=== PATIENT | female | born 1965 | race American Indian/Alaskan Native ===

== ENCOUNTER 2017-03-21 22:16 | Inpatient (IN) | payer OTHER ==
[2017-03-21 23:50] LABS: Basophils % (Auto) 0.6 % (0.0-1.8); Eosinophils % (Auto) 0.4 % (0.0-4.3); Hematocrit 42.6 % (30.3-42.9); Hemoglobin 13.8 gm/dl (10.1-14.3); Mean Corpuscular HGB Conc 32 % (30-34); Mean Corpuscular Hemoglobin 27 pg (28-32); Mean Corpuscular Volume 82 fl (79-97); Platelet Count 306 K/mm3 (140-440); Red Cell Distribution Width 15.1 % (13.2-15.2); White Blood Count 8.9 K/mm3 (4.5-11.0)
[2017-03-22 01:06] LABS: Anion Gap 19 mmol/L; BUN/Creatinine Ratio 18; Blood Urea Nitrogen 11 mg/dL (7-17); Calcium 10.4 mg/dL (8.4-10.2); Carbon Dioxide 27 mmol/L (22-30); Chloride 98.5 mmol/L (98-107); Glucose 100 mg/dL (65-100); Potassium 4.1 mmol/L (3.6-5.0); Sodium 140 mmol/L (137-145)
[2017-03-22] MEDS ORDERED: SUBLIMAZE IV ONE (07:30)
[2017-03-22] MEDS ORDERED: ZOFRAN IV ONE (07:30)
[2017-03-22] MEDS ORDERED: NITRO-BID 2% TP ONE ×2 (07:30→09:16)
--- NOTE | 2017-03-22 07:35 | Emergency Department Report ---
HPI - General Chief Complaint: Chest Pain Time Seen by Provider: 03/22/17 07:22 - HPI HPI: Room 3 The patient is a 51-year-old female presenting with a chief complaint of chest pain and headache. Patient states 2 days ago she developed an intermittent occipital headache described as sharp piercing pain. The patient states yesterday afternoon at approximately 17:00 she developed substernal chest pain described as tightness radiating to the left chest. The patient states she developed left upper extremity numbness in addition to shortness of breath, diaphoresis and nausea without vomiting associated with the chest pain. The patient currently gives her pain a score of 10/10. Patient states she's never had a stress test or cardiac catheterization Location: Chest, head Duration: [See above] Quality: [See above] Severity:02/10 Modifying factors: [see above] Context: [see above] Mode of transportation: [not driving] ED Past Medical Hx - Past Medical History Previous Medical History?: Yes Hx Hypertension: Yes Hx Arthritis: Yes - Surgical History Hx Cholecystectomy: Yes Additional Surgical History: Fibriods removed, cysts removed - Family History Family history: no significant - Social History Smoking Status: Never Smoker Substance Use Type: None - Medications Home Medications: Home Medications Medication Instructions Recorded Confirmed Last Taken Type Prednisone 20 mg PO TID #9 tablet 03/18/13 08/10/13 Unknown Rx Triamter/Hctz 75-50 mg [Maxzide 1 tab PO QDAY #30 tablet 03/18/13 08/10/13 Unknown Rx 75-50 mg] amLODIPine [Norvasc] 5 mg PO DAILY #30 tablet 03/18/13 08/10/13 Unknown Rx Cyclobenzaprine HCl [FLEXERIL] 10 mg PO TID PRN #15 tablet 04/07/13 08/10/13 Unknown Rx Ibuprofen [Motrin 800 MG tab] 800 mg PO TID #30 tablet 04/07/13 08/10/13 Unknown Rx Ondansetron [Zofran] 4 mg PO Q6HR PRN #10 tablet 04/07/13 08/10/13 Unknown Rx HYDROcodone/APAP 10-325 [[place] 1 each PO Q6HR PRN #15 tablet 08/10/13 Unknown Rx 10-325 mg TAB] Acetaminophen/Codeine 1 tab PO Q6H PRN #15 tab 06/21/14 Unknown Rx [Acetaminophen-Codeine #3 TAB] Ibuprofen [Motrin] 800 mg PO Q8H #30 tablet 06/21/14 Unknown Rx methOCARBAMOL [Robaxin] 500 mg PO BID #30 tab 06/21/14 Unknown Rx methylPREDNISolone [Medrol Dose 4 mg PO DAILY 6 Days tab 06/21/14 Unknown Rx [place]] ED Review of Systems ROS: Stated complaint: CHEST PAIN Other details as noted in HPI Comment: All other systems reviewed and negative Constitutional: diaphoresis. denies: chills, fever Eyes: denies: eye pain, eye discharge, vision change ENT: denies: ear pain, throat pain Respiratory: shortness of breath Cardiovascular: chest pain Endocrine: no symptoms reported Gastrointestinal: nausea. denies: vomiting Genitourinary: denies: urgency, dysuria, discharge Musculoskeletal: denies: back pain, joint swelling, arthralgia Skin: denies: rash, lesions Neurological: headache. denies: weakness, paresthesias Psychiatric: denies: anxiety, depression Hematological/Lymphatic: denies: easy bleeding, easy bruising Physical Exam - Physical Exam Vital Signs: Vital Signs 03/21/17 03/22/17 03/22/17 22:47 03:03 05:25 Temperature 98.5 F 98.1 F 98 F Pulse Rate 87 87 95 H Respiratory 18 18 24 Rate Blood Pressure 188/90 176/87 Blood Pressure 151/104 [Left] O2 Sat by Pulse 97 99 97 Oximetry 03/22/17 06:01 Temperature Pulse Rate 92 H Respiratory 23 Rate Blood Pressure 137/78 Blood Pressure [Left] O2 Sat by Pulse 98 Oximetry Physical Exam: GENERAL: The patient is well-developed well-nourished female lying on stretcher not appearing to be in acute distress. [] HEENT: Normocephalic. Atraumatic. Extraocular motions are intact. Patient has moist mucous membranes. NECK: Supple. Trachea midline CHEST/LUNGS: Clear to auscultation. There is no respiratory distress noted. HEART/CARDIOVASCULAR: Regular. There is no tachycardia. There is no gallop rub or murmur. ABDOMEN: Abdomen is soft, nontender. Patient has normal bowel sounds. There is no abdominal distention. SKIN: There is no rash. There is no edema. There is no diaphoresis. NEURO: The patient is awake, alert, and oriented. The patient is cooperative. The patient has no focal neurologic deficits. The patient has normal speech. Cranial nerves II through XII grossly intact, no drift MUSCULOSKELETAL: There is no evidence of acute injury. ED Course Vital Signs 03/21/17 03/22/17 03/22/17 22:47 03:03 05:25 Temperature 98.5 F 98.1 F 98 F Pulse Rate 87 87 95 H Respiratory 18 18 24 Rate Blood Pressure 188/90 176/87 Blood Pressure 151/104 [Left] O2 Sat by Pulse 97 99 97 Oximetry 03/22/17 06:01 Temperature Pulse Rate 92 H Respiratory 23 Rate Blood Pressure 137/78 Blood Pressure [Left] O2 Sat by Pulse 98 Oximetry ED Medical Decision Making - Lab Data Result diagrams: 03/21/17 23:29 03/21/17 23:29 Laboratory Tests 03/21/17 03/21/17 03/22/17 23:29 23:29 02:37 WBC 8.9 RBC 5.20 H Hgb 13.8 Hct 42.6 MCV 82 MCH 27 L MCHC 32 RDW 15.1 Plt Count 306 Lymph % (Auto) 37.4 H Sargent % (Auto) 6.5 Eos % (Auto) 0.4 Baso % (Auto) 0.6 Lymph # 3.3 Sargent # 0.6 Eos # 0.0 Baso # 0.1 Seg Neutrophils % 55.1 Seg Neutrophils # 4.9 Sodium 140 Potassium 4.1 Chloride 98.5 Carbon Dioxide 27 Anion Gap 19 BUN 11 Creatinine 0.6 L Estimated GFR > 60 BUN/Creatinine Ratio 18 Glucose 100 Calcium 10.4 H Troponin T < 0.010 < 0.010 03/22/17 05:25 WBC RBC Hgb Hct MCV MCH MCHC RDW Plt Count Lymph % (Auto) Sargent % (Auto) Eos % (Auto) Baso % (Auto) Lymph # Sargent # Eos # Baso # Seg Neutrophils % Seg Neutrophils # Sodium Potassium Chloride Carbon Dioxide Anion Gap BUN Creatinine Estimated GFR BUN/Creatinine Ratio Glucose Calcium Troponin T < 0.010 - EKG Data -: EKG Interpreted by Me EKG shows normal: sinus rhythm Rate: normal - EKG Data When compared to previous EKG there are: previous EKG unavailable Interpretation: other (no ischemic changes seen) - Radiology Data Radiology results: report reviewed (CT head), image reviewed (CT head, chest x- ray) interpreted by me: Chest x-ray-no focal infiltrates, no pneumothorax FINAL REPORT EXAM: CT HEAD/BRAIN WO CON HISTORY: headache TECHNIQUE: CT imaging acquired through the head without intravenous contrast. Transaxial reformations are provided. PRIORS: None. FINDINGS: The ventricles, cisterns and sulci are within normal limits. No intraparenchymal or extra-axial mass, hemorrhage, or mass effect. Hsu and white-matter differentiation is within normal limits. Normal spherical shape of the globes. No significant abnormality involving the imaged portions of the paranasal sinuses and mastoid air cells. No skull or facial fracture visualized. IMPRESSION: No acute intracranial abnormality. Transcribed By: MB Dictated By: COMPA DICKERSON MD Electronically Authenticated By: COMPA DICKERSON MD Signed Date/Time: 03/22/17423 DD/ 3 TD/TT: 03/22/17423 - Differential Diagnosis ACS, ICH, GERD, pericarditis, hypertensive urgency Critical care attestation.: If time is entered above; I have spent that time in minutes in the direct care of this critically ill patient, excluding procedure time. ED Disposition Clinical Impression: Chest pain, Headache Disposition: OP ADMIT IP TO THIS HOSP Is pt being admited?: Yes Does the pt Need Aspirin: Yes Condition: Fair Instructions: Chest Pain (ED) Referrals: PRIMARY CAREMD [Primary Care Provider] - 3-5 Days Time of Disposition: 08:37 (hospitalist paged)
--- NOTE | 2017-03-22 08:27 | Cat Scan Report ---
FINAL REPORT EXAM: CT HEAD/BRAIN WO CON HISTORY: headache TECHNIQUE: CT imaging acquired through the head without intravenous contrast. Transaxial reformations are provided. PRIORS: None. FINDINGS: The ventricles, cisterns and sulci are within normal limits. No intraparenchymal or extra-axial mass, hemorrhage, or mass effect. Hsu and white-matter differentiation is within normal limits. Normal spherical shape of the globes. No significant abnormality involving the imaged portions of the paranasal sinuses and mastoid air cells. No skull or facial fracture visualized. IMPRESSION: No acute intracranial abnormality.
[2017-03-22] MEDS ORDERED: ASPIRIN PO ONE (08:37)
--- NOTE | 2017-03-22 08:50 | XRay Report ---
FINAL REPORT EXAM: XR CHEST 1V AP HISTORY: chest pain TECHNIQUE: AP portable view(s) of the chest obtained. PRIORS: None. FINDINGS: No mediastinal shift. Cardiac silhouette is not enlarged. No pneumothorax, effusion, or focal pulmonary opacity identified. No acute skeletal findings. IMPRESSION: No acute pulmonary finding identified.
[2017-03-22] MEDS ORDERED: ZOFRAN ONE (09:16)
[2017-03-22] MEDS ORDERED: ASPIRIN ONE (09:17)
[2017-03-22] MEDS ORDERED: SUBLIMAZE ONE (09:19)
--- NOTE | 2017-03-22 09:46 | History and Physical Report ---
History of Present Illness Date of examination: 03/22/17 Date of admission: 03/22/17 08:41 Chief complaint: Left-sided chest pain pressure for the last 2 days History of present illness: Morbidly obese 51-year-old -[place] female patient with significant history of hypertension presented to the emergency room with left-sided chest pain and headache Patient has intermittent chest pain retrosternal radiating to left-sided , pain squeezing to pressure type as well as left upper extremity numbness Patient reports mild shortness of breath diaphoresis and nausea without vomiting , grades his pain 10 over 10 at peak, the time of my evaluation she reports 4-6/ 10 No orthopnea paroxysmal nocturnal dyspnea First set of cardiac enzymes negative, no acute EKG changes Past History Past Medical History: arthritis, hypertension Past Surgical History: Other (removal of fibroid/cyst removal) Social history: lives with family, full code. denies: smoking, alcohol abuse, prescription drug abuse Family history: hypertension Medications and Allergies Allergies Allergy/AdvReac Type Severity Reaction Status Date / Time iodine Allergy Swelling Verified 06/21/14 11:32 Home Medications Medication Instructions Recorded Confirmed Last Taken Type Triamterene/Hydrochlorothiazid 1 tab PO DAILY 03/22/17 03/22/17 03/21/17 10:00 History [Triamterene-Hctz 75-50 mg Tab] amLODIPine [Norvasc] 10 mg PO DAILY 03/22/17 03/22/17 03/21/17 10:00 History Review of Systems Constitutional: no weight loss, no weight gain, no fever Ears, nose, mouth and throat: no nasal congestion, no nasal discharge Cardiovascular: chest pain, shortness of breath, no orthopnea, no palpitations, no paroxysmal nocturnal dyspnea Respiratory: shortness of breath, no cough, no hemoptysis Gastrointestinal: nausea, no abdominal pain, no vomiting Genitourinary Female: no pelvic pain, no dysuria Musculoskeletal: arthritis, no myalgias Integumentary: no rash, no lesions Neurological: numbness, no weakness, no seizures Psychiatric: no anxiety, no depression Endocrine: no cold intolerance, no heat intolerance, no polydipsia, no polyuria Hematologic/Lymphatic: no easy bruising, no easy bleeding Allergic/Immunologic: no urticaria, no allergic rhinitis Exam - Constitutional Vitals: Temp Pulse Resp BP Pulse Ox 97.9 F 99 H 18 145/82 100 03/22/17 07:00 03/22/17 09:30 03/22/17 09:30 03/22/17 09:30 03/22/17 07:27 General appearance: Present: no acute distress, well-nourished, obese (morbidly obese) - EENT Eyes: Present: PERRL, EOM intact - Neck Neck: Present: supple, normal ROM - Respiratory Respiratory effort: normal Respiratory: bilateral: diminished, negative: rales, rhonchi, wheezing - Cardiovascular Rhythm: regular Heart Sounds: Present: S1 & S2 - Extremities Extremities: no ischemia, No edema - Abdominal General gastrointestinal: Present: soft, non-tender, non-distended, normal bowel sounds - Integumentary Integumentary: Present: clear, warm - Musculoskeletal Musculoskeletal: strength equal bilaterally, generalized weakness - Psychiatric Psychiatric: appropriate mood/affect, cooperative - Neurologic Neurologic: CNII-XII intact, moves all extremities Results - Labs CBC & Chem 7: 03/21/17 23:29 03/21/17 23:29 Labs: Abnormal lab results 03/21/17 03/21/17 Range/Units 23:29 23:29 RBC 5.20 H (3.65-5.03) M/mm3 MCH 27 L (28-32) pg Lymph % (Auto) 37.4 H (13.4-35.0) % Creatinine 0.6 L (0.7-1.2) mg/dL Calcium 10.4 H (8.4-10.2) mg/dL Assessment and Plan --Angina; serial cardiac enzymes, EKG Management with aspirin, beta blockers, nitrates, statins, and Lovenox Patient has risk factors, stress test to rule out reversible ischemia and LV function Cardiology evaluation if no improvement or if stress test is abnormal --Hypertension; moderate control, resume home antihypertensives and when necessary medications --Morbid obesity; BMI 52.5 Counseling done, advised dietary modification, exercise as tolerated and weight reduction May benefit by bariatric surgical evaluation as outpatient for weight reduction program --Headache; CT scan negative, supportive care and pain medications --DVT prophylaxis with Lovenox Closely monitor the patient and just the management as needed Possible discharge in 1-2 days if stable Plan of care discussed with the patient and her nurse
[2017-03-22] MEDS ORDERED: NITROSTAT SL PRN (09:52)
[2017-03-22] MEDS ORDERED: HCTZ PO SCH (10:00)
[2017-03-22] MEDS ORDERED: TRIAMTER PO SCH (10:00)
[2017-03-22] MEDS: ASPIRIN PO SCH (10:41)
[2017-03-22] MEDS: COREG PO SCH ×2 (11:34→21:06)
[2017-03-22] MEDS: NORVASC PO SCH (11:34)
[2017-03-22] MEDS: PEPCID PO SCH ×2 (11:35→21:06)
[2017-03-22] MEDS: MAXZIDE-25 PO SCH (12:30)
[2017-03-22 13:10] LABS: Creatine Kinase 80 units/L (30-135)
[2017-03-22 14:06] LABS: Creatine Kinase MB < 1.0 ng/mL (0.0-4.0)
[2017-03-22 17:07] LABS: Creatine Kinase 76 units/L (30-135)
[2017-03-22] MEDS: TYLENOL PO PRN ×2 (17:19→23:35)
[2017-03-22 17:20] LABS: Creatine Kinase MB < 1.0 ng/mL (0.0-4.0)
[2017-03-23] MEDS ORDERED: FLEXERIL PO PRN (02:48)
[2017-03-23] MEDS: TYLENOL PO PRN (03:08)
--- NOTE | 2017-03-23 09:55 | Discharge Summary ---
Providers - Providers Date of Admission: 03/22/17 08:41 Date of discharge: 03/23/17 Attending physician: CHEL OSBORN Primary care physician: PAVING SUPERVISOR Hospitalization Condition: Fair Disposition: DC-01 TO HOME OR SELFCARE Time spent for discharge: 32 min Core Measure Documentation - Palliative Care Palliative Care/ Comfort Measures: Not Applicable - Core Measures Any of the following diagnoses?: none Exam - Constitutional Vitals: Temp Pulse Resp BP Pulse Ox 98.0 F 83 18 118/53 99 03/23/17 07:46 03/23/17 07:46 03/23/17 07:46 03/23/17 07:46 03/23/17 07:46 Plan Activity: no restrictions Diet: other (cardiac diet) Additional Instructions: If you have recurrent chest pain or shortness of breath , contact M.D. or go to emergency room. Advised diet modification, exercise as tolerated and weight reduction. Advised to see bariatric surgeon for weight reduction program when medically stable Follow up with: PRIMARY MD GABRIELA [Primary Care Provider] - 3-5 Days CAROLANN JORGE MD [Staff Physician] - 7 Days Prescriptions: amLODIPine [Norvasc] 10 mg PO DAILY #30 tablet Famotidine [Pepcid] 20 mg PO BID #30 tablet Ibuprofen 400 mg PO TID PRN #15 tablet PRN Reason: Pain Triamterene/Hydrochlorothiazid [Triamterene-Hctz 75-50 mg Tab] 1 tab PO DAILY # 30 tablet
[2017-03-23] MEDS: COREG PO SCH (11:14)
[2017-03-23] MEDS: PEPCID PO SCH (11:14)
[2017-03-23] MEDS: ASPIRIN PO SCH (11:14)
[2017-03-23] MEDS: NORVASC PO SCH (11:14)
[2017-03-23] MEDS: MAXZIDE-25 PO SCH (11:15)
[2017-03-23] MEDS ORDERED: PNEUMOVAX 23 IM ONE (12:00)
[2017-03-23 12:31] VITALS: BP 128/61
== END 2017-03-23 15:56 | disposition home or self-care (01) | DRG 311 ==
LOC: ED 22:16 → 4A 03-22 08:41
PROVIDERS: ADMIT Internal Medicine; ATTEND Internal Medicine
PROC: 3E0234Z Introduction of Serum, Toxoid and Vaccine into Muscle, Percutaneous Approach (ICD-10-PCS; principal; 2017-03-23)
DX: I20.9 Angina pectoris, unspecified (principal); Z68.43 Body mass index [BMI] 50.0-59.9, adult; E66.01 Morbid (severe) obesity due to excess calories; I10 Essential (primary) hypertension; Z88.3 Allergy status to other anti-infective agents; Z23 Encounter for immunization; Z90.49 Acquired absence of other specified parts of digestive tract; Z82.49 Family history of ischemic heart disease and other diseases of the circulatory system; R51 Headache
CPT/HCPCS: 36415; 70450; 71010; 80048; 80061; 82550; 82553; 84484; 85025; 90732; 93005; 93010; A9270-GY; J2405; J3010